=== PATIENT | female | born 1965 | race Caucasian/White ===

== ENCOUNTER 2018-12-25 06:15 | Emergency (ER) | payer OTHER ==
[~2018-12-25] VITALS: Ht 165.1 cm; Wt 70.3 kg
[2018-12-25] MEDS ORDERED: SYNTHROID100 MCG (06:38)
[2018-12-25] MEDS ORDERED: PAXIL40 MG (06:38)
[2018-12-25] MEDS ORDERED: VISTARIL50 MG (06:38)
[2018-12-25] MEDS ORDERED: NEURONTIN300 MG (06:39)
[2018-12-25] MEDS ORDERED: SEROQUEL300 MG (06:39)
== END 2018-12-25 10:56 | disposition home or self-care (01) ==
LOC: ER 06:15
DX: M54.5 Low back pain (principal); R10.31 Right lower quadrant pain

== ENCOUNTER 2023-08-31 09:26 | Emergency (ER) | payer OTHER ==
[~2023-08-31] VITALS: Ht 165.1 cm; Wt 59.0 kg
[~2023-08-31 09:26] MED LIST: NEURONTIN300 MG; PAXIL40 MG; SEROQUEL300 MG; SYNTHROID100 MCG; VISTARIL50 MG
[2023-08-31] MEDS ORDERED: JARDIANCE10 MG PO (10:18)
[2023-08-31] MEDS ORDERED: VISTARIL50 MG/ML IM (10:19)
[2023-08-31] MEDS ORDERED: FAMOTIDINE/PF 20 MG in 0.9 % SODIUM CHLORIDE 8 ML IV PUSH STA (10:37)
[2023-08-31] MEDS ORDERED: MEPERIDINE HCL 25 MG/ML AMPUL IV ONE (10:45)
[2023-08-31] MEDS ORDERED: 0.9 % SODIUM CHLORIDE 1,000 ML IV SCH (10:45)
[2023-08-31 10:56] LABS: HEMATOCRIT 40.8 % (36.0-45.00); HEMOGLOBIN 13.9 g/dL (12.0-15.00); MEAN CELL VOLUME 94.5 fL (80.00-100.00); MEAN CORPUSCULAR HEMOGLOBIN 32.1 pg (27.00-32.0); PLATELET COUNT 183 K/uL (150-450); RED BLOOD COUNT 4.31 M/uL (4.00-6.00); RED CELL DISTRIBUTION WIDTH 14.6 % (11.5-14.5)
[2023-08-31 12:05] LABS: CALCIUM 8.9 mg/dL (8.5-10.1); GFR 56.55; POTASSIUM 3.86 mEq/L (3.5-5.1)
[2023-08-31] MEDS ORDERED: MEPERIDINE HCL/PF 25 MG/ML VIAL IV ONE (13:30)
== END 2023-08-31 13:37 | disposition home or self-care (01) ==
LOC: ER 09:26
PROVIDERS: Emergency Medicine
DX: K29.70 Gastritis, unspecified, without bleeding (principal); F32.89 Other specified depressive episodes; E11.9 Type 2 diabetes mellitus without complications; E03.9 Hypothyroidism, unspecified